=== PATIENT | male | born 1960 | race Caucasian/White ===

== ENCOUNTER 2023-02-09 09:56 | Outpatient (CLI) | payer BC, SELFPAY | END 2023-02-09 09:57 | disposition home or self-care (01) | PROVIDERS: PCP Family Medicine; Visit Provider Nurse Practitioner Family | DX: Z00.00 Encounter for general adult medical examination without abnormal findings (principal); E03.9 Hypothyroidism, unspecified; I10 Essential (primary) hypertension; E78.5 Hyperlipidemia, unspecified; E13.9 Other specified diabetes mellitus without complications; Z12.5 Encounter for screening for malignant neoplasm of prostate | CPT/HCPCS: 80053; 80061; 82043; 82570; 84153 ==

== ENCOUNTER 2023-06-09 08:45 | Outpatient (RCR) | payer BC, SELFPAY | END 2023-06-09 10:38 | disposition home or self-care (01) | PROVIDERS: PCP Family Medicine; Visit Provider Orthopaedic Surgery | DX: S52.592A Other fractures of lower end of left radius, initial encounter for closed fracture (principal); Z98.890 Other specified postprocedural states; Z51.89 Encounter for other specified aftercare | CPT/HCPCS: 97140; 97165; L3906 ==

== ENCOUNTER 2023-10-02 13:41 | Outpatient (CLI) | payer BC, SELFPAY | END 2023-10-02 13:42 | disposition home or self-care (01) | LOC: LKVREF 13:42 | PROVIDERS: PCP Family Medicine; Visit Provider Family Medicine | DX: E03.9 Hypothyroidism, unspecified (principal) | CPT/HCPCS: 84439; 84443 ==

== ENCOUNTER 2024-01-09 11:10 | Outpatient (CLI) | payer BC, SELFPAY | END 2024-01-09 11:11 | disposition home or self-care (01) | PROVIDERS: PCP Family Medicine; Visit Provider Family Medicine | DX: E03.9 Hypothyroidism, unspecified (principal); I10 Essential (primary) hypertension; E13.9 Other specified diabetes mellitus without complications | CPT/HCPCS: 80048; 84439; 84443 ==

== ENCOUNTER 2024-04-20 10:37 | Outpatient (CLI) | payer BC, SELFPAY ==
--- OUTSIDE RECORDS SUMMARY | 2024-04-24 00:27 | XMS_ITS | Clinical Summary ---
Author Organization [facility] Address [address] [place], [place] [id number] Phone [email or web address] Care Team Providers Care Enrollment Nurse Name Role Phone Unavailable Primary Care Provider Unavailabl e Social History Tobacco Use Types Packs/Day Years Used Date Smoking Tobacco: Never Assessed Intimate Partner Violence Answer Date R ecorded Insults You Not on file 02/10/2021 Threatens You Not on file 02/10/2021 Screams at You Not on file 02/10/2021 Physically Hurt Not on file 02/10/2021 Intimate Partner Violence Score Not on file 02/10/2021 Stress Answer Date Recorded Stress in your Life 0 12/11/2020 Dealing with Stress Not on file 12/11/2020 Sex and Gender Information Value Date Recorded Sex Assigned at Not on file Gender Identity Not on file Sexual Orientation Not on file Last Filed Vital Signs Vital Sign Reading Time Taken Comments Blood Pressure 152/94 05/22/2019 12:00 AM CDT Pulse - - Temperature - - Respiratory Rate - - Oxygen Saturation - - Inhaled Oxygen Concentration - - Weight 114 kg (252 lb) 05/22/2019 12:00 AM CDT Height 180.3 cm (5' 11) 05/22/2019 12:00 AM CDT Body Mass Index 35.15 05/22/2019 12:00 AM CDT Plan of Treatment Not on file
--- OUTSIDE RECORDS SUMMARY | 2024-04-24 00:27 | XMS_ITS | Clinical Summary ---
Author Organization [facility] Address [place], [place] [address] Care Team Providers Care Bonbon Cream Warmer Name Role Phone No, Pcp [[id number]] Primary Care Provider Unavailabl e Allergies No known active allergies Medications Medication Sig Dispensed Refills Start Date End Date Status trimethoprim-sulfamet hoxazole, 160-800 mg, (BACTRIM DS, SEPTRA DS) tabletIndications:Kendra lulitis of left lower leg Take 1 tablet by mouth 2 times daily. 14 tablet 0 01/26/2016 Active Social History Tobacco Use Types Packs/Day Years Used Date Smoking Tobacco: Never Alcohol Use Standard Drinks/Week Comments Yes 0 (1 standard drink = 0.6 oz pur e alcohol) Socially Sex and Gender Information Value Date Recorded Sex Assigned at Not on file Gender Identity Not on file Sexual Orientation Not on file Obstetrics History Last Filed Vital Signs Vital Sign Reading Time Taken Comments Blood Pressure 142/74 01/26/2016 6:20 PM CDT Pulse 76 01/26/2016 6:20 PM CDT Temperature 36.8 ??C (98.2 ??F) 01/26/2016 5:52 PM CD T Respiratory Rate 18 01/26/2016 5:52 PM CDT Oxygen Saturation 97% 01/26/2016 6:20 PM CDT Inhaled Oxygen Concentration - - Weight 90.7 kg (200 lb) 01/26/2016 5:52 PM CDT Height 182.9 cm (6') 01/26/2016 5:52 PM CDT Body Mass Index 27.12 01/26/2016 5:52 PM CDT Plan of Treatment Not on file Care Teams Bonbon Cream Warmer Relationship Specialty Start Date End Date NO, PCP [[id number]] PCP - General 01/26/16
--- OUTSIDE RECORDS SUMMARY | 2024-04-24 00:27 | XMS_ITS | Referral Summary ---
Author Organization [facility] Address [address] [place] [address] Care Team Providers Care Court Bailiff Name Role Phone Clinic, [facility] Primary [facility] re Provider Allergies No known active allergies Social History Tobacco Use Types Packs/Day Years Used Date Smoking Tobacco: Never Smokeless Tobacco: Never Tobacco Cessation:Counseling Given: Not Answered Alcohol Use Standard Drinks/Week Comments Yes 0 (1 standard drink = 0.6 oz pur e alcohol) occasional beer Adolescent Education Answer Date Record ed Getting School Help Needed Not on file 08/13 Sex and Gender Information Value Date Recorded Sex Assigned at Not on file Gender Identity Not on file Sexual Orientation Not on file Last Filed Vital Signs Vital Sign Reading Time Taken Comments Blood Pressure 166/109 03/03/2023 9:30 PM CDT Pulse 93 03/03/2023 9:30 PM CDT Temperature 36.7 ??C (98 ??F) 03/03/2023 4:38 PM CDT Respiratory Rate 18 03/03/2023 9:30 PM CDT Oxygen Saturation 98% 03/03/2023 9:30 PM CDT Inhaled Oxygen Concentration - - Weight 108.9 kg (240 lb) 03/03/2023 4:38 PM CDT Height 182.9 cm (6') 03/03/2023 4:38 PM CDT Body Mass Index 32.55 03/03/2023 4:38 PM CDT Plan of Treatment Not on file Procedures Procedure Name Priority Date/Time Associated Diagnosis Comments COMPREHENSIVE METABOLIC PANEL STAT 03/03/2023 6:06 PM CDT from Last 3 Months or Most Recently Relevant to Health Maintenance Results * (ABNORMAL) Comprehensive metabolic panel (03/03/2023 6:06 PM CDT) Sodium 133(L) 136 - 145 mmol/L 03/03/2023 6:35 PM CDT LABORATORY Potassium 4.6 3.4 - 5.3 mmol/L 03/03/2023 6:35 PM CDT LABORATORY Chloride 95(L) 98 - 107 mmol/L 03/03/2023 6:35 PM CDT LABORATORY Carbon Dioxide (CO2) 25 22 - 29 mmol/L 03/03/2023 6:35 PM CDT LABORATORY Anion Gap 13 7 - 15 mmol/L 03/03/2023 6:35 PM CDT LABORATORY Urea Nitrogen 20.6 8.0 - 23.0 mg/dL 03/03/2023 6:35 PM CDT LABORATORY Creatinine 0.83 0.67 - 1.17 mg/dL 03/03/2023 6:35 PM CDT LABORATORY Calcium 9.8 8.8 - 10.2 mg/dL 03/03/2023 6:35 PM CDT LABORATORY Glucose 321(H) 70 - 99 mg/dL 03/03/2023 6:35 PM CDT LABORATORY Alkaline Phosphatase 116 40 - 129 U/L 03/03/2023 6:35 PM CDT LABORATORY AST 40 10 - 50 U/L 03/03/2023 6:35 PM CDT LABORATORY Comment:Specimen is hemolyze d which can falsely elevate AST. Analysis of a non-hemolyzed specimen may result in a lower value. ALT 34 10 - 50 U/L 03/03/2023 6:35 PM CDT LABORATORY Protein Total 8.3 6.4 - 8.3 g/dL 03/03/2023 6:35 PM CDT LABORATORY Albumin 4.8 3.5 - 5.2 g/dL 03/03/2023 6:35 PM CDT LABORATORY Bilirubin Total 0.5 <=1.2 mg/dL 03/03/2023 6:35 PM CDT LABORATORY GFR Estimate >90 >60 mL/min/1.7 3m2 03/03/2023 6:35 PM CDT LABORATORY Comment:eGFR calculated us2020 CKD-EPI equation. Blood BLOOD SPECIMEN / Unknown Venipuncture / Unknown 03/03/2023 6:06 PM CDT 03/03/2023 6:10 PM CDT Rock Cast MD LAB - BLOOD ORDER [facility] [address] [facility] Lab (1st floor, no room number) [place] [address], [facility] [phone] from Last 3 Months or Most Recently Relevant to Health Maintenance Care Teams Court Bailiff Relationship Specialty Start Date End Date Clinic, [place] [address] [place] [address] PCP - General 03/03/23
--- OUTSIDE RECORDS SUMMARY | 2024-04-24 00:27 | XMS_ITS | Clinical Summary ---
Author Organization [facility] Address [address] [facility] [address] Care Team Providers Care Switch Cleaner Name Role Phone Clinic, [facility] Primary [facility] re Provider Allergies No known active allergies [...] 03/03/2023 4:38 PM CDT Plan of Treatment Health Maintenance Due Date Last Done Comments ADVANCE CARE PLANNING 1960 ANNUAL REVIEW OF HM ORDERS 1960 CT COLONOGRAPHY 1960 FIT 1960 FLEX SIG 1960 YEARLY PREVENTIVE VISIT 1960 sDNA (Cologuard) 1960 COLONOSCOPY 1970 COLORECTAL CANCER SCREENING 1970 HIV SCREENING 1975 HEPATITIS C SCREENING 1978 LIPID 2000 ZOSTER IMMUNIZATION (1 of 2) 2010 RSV VACCINE ( & 60+) (1 - 1-dose 60+ series) 2020 DTAP/TDAP/TD IMMUNIZATION (2 - Td or Tdap) 02/13/2023 02/13/2013 COVID-19 Vaccine (3 - season) 2023 04/07/2021, 03/17/2021 PHQ-2 (once per calendar year) 2023 INFLUENZA VACCINE (Season Ended) 2024 09/07/2020, 08/02/2019, 07/10/2018, Additional history exists GLUCOSE 03/03/2026 03/03/2023 Pneumococcal Vaccine: Pediatrics (0 to 5 Years) and At-Risk Patients (6 to 64 Years) Aged Out 02/13/2013 No longer eligible based on patient's age to complete this topic HPV IMMUNIZATION Aged Out No longer e ligible based on patient's age to complete this topic IPV IMMUNIZATION Aged Out No longer e ligible based on patient's age to complete this topic MENINGITIS IMMUNIZATION Aged Out No l onger eligible based on patient's age to complete this topic RSV MONOCLONAL ANTIBODY Aged Out No l onger eligible based on patient's age to complete this topic Procedures Procedure Name Priority Date/Time Associated Diagnosis Comments COMPREHENSIVE METABOLIC PANEL STAT 03/03/2023 6:06 PM CDT from Last 3 Months or Most Recently Relevant to Health Maintenance Results * (ABNORMAL) Comprehensive metabolic panel (03/03/2023 6:06 PM CDT) Sodium 133(L) 136 - 145 mmol/L 03/03/2023 6:35 PM CDT [facility] Potassium 4.6 3.4 - 5.3 mmol/L 03/03/2023 6:35 PM CDT [facility] Chloride 95(L) 98 - 107 mmol/L 03/03/2023 6:35 PM CDT [facility] Carbon Dioxide (CO2) 25 22 - 29 mmol/L 03/03/2023 6:35 PM CDT [facility] Anion Gap 13 7 - 15 mmol/L 03/03/2023 6:35 PM CDT [facility] Urea Nitrogen 20.6 8.0 - 23.0 mg/dL 03/03/2023 6:35 PM CDT [facility] Creatinine 0.83 0.67 - 1.17 mg/dL 03/03/2023 6:35 PM CDT [facility] Calcium 9.8 8.8 - 10.2 mg/dL 03/03/2023 6:35 PM CDT [facility] Glucose 321(H) 70 - 99 mg/dL 03/03/2023 6:35 PM CDT [facility] Alkaline Phosphatase 116 40 - 129 U/L 03/03/2023 6:35 PM CDT [facility] AST 40 10 - 50 U/L 03/03/2023 6:35 PM CDT [facility] Comment:Specimen is hemolyze d which can falsely elevate AST. Analysis of a non-hemolyzed specimen may result in a lower value. ALT 34 10 - 50 U/L 03/03/2023 6:35 PM CDT LABORATORY Protein Total 8.3 6.4 - 8.3 g/dL 03/03/2023 6:35 PM CDT [facility] Albumin 4.8 3.5 - 5.2 g/dL 03/03/2023 6:35 PM CDT [facility] Bilirubin Total 0.5 <=1.2 mg/dL 03/03/2023 6:35 PM CDT [facility] GFR Estimate >90 >60 mL/min/1.7 3m2 03/03/2023 6:35 PM CDT LABORATORY Comment:eGFR calculated us2020 CKD-EPI equation. Blood BLOOD SPECIMEN / Unknown Venipuncture / Unknown 03/03/2023 6:06 PM CDT 03/03/2023 6:10 PM CDT Rock Cats MD LAB - BLOOD ORDER [facility] [address] Lab (1st floor, no room number) [place] [address], [facility] [phone] from Last 3 Months or Most Recently Relevant to Health Maintenance Care Teams Switch Cleaner Relationship Specialty Start Date End Date Clinic, [place] [address] [place] [address] PCP - General 03/03/23
== END 2024-04-20 10:38 | disposition home or self-care (01) ==
LOC: AMB 04-24 00:24
PROVIDERS: PCP Family Medicine; Visit Provider Student in an Organized Health Care Education/Training Program
DX: E11.65 Type 2 diabetes mellitus with hyperglycemia (principal)
CPT/HCPCS: A0998

== ENCOUNTER 2024-11-01 14:03 | Outpatient (CLI) | payer BC, SELFPAY | END 2024-11-01 14:04 | disposition home or self-care (01) | PROVIDERS: PCP Family Medicine; Visit Provider Family Medicine | DX: I10 Essential (primary) hypertension (principal); E78.5 Hyperlipidemia, unspecified; E03.9 Hypothyroidism, unspecified; E13.9 Other specified diabetes mellitus without complications; Z12.5 Encounter for screening for malignant neoplasm of prostate | CPT/HCPCS: 80061; 84439; 84443; 84480; 84681; G0103 ==